=== PATIENT | female | born 2000 | race Caucasian/White ===

== ENCOUNTER → 2018-12-14 | Outpatient (CLI) | payer BC ==
--- NOTE | 2018-12-14 09:19 | KCIC ---
Indication:Low pelvic pain. IUD for one year. History of dermoid cyst removed from the left ovary 4 years ago. TECHNIQUE: Grayscale, color Doppler and spectral waveform images of the pelvis obtained. COMPARISON: None FINDINGS: The uterus is anteverted and measures 9.0 x 3.8 x 5.0 cm. Endometrial stripe measures 7 mm in thickness and is within normal limits. IUD noted. Right ovary measures 2.8 x 1.5 x 2.8 cm and shows blood flow. Small amount of free pelvic fluid noted likely physiologic. Left ovary measures 4.1 x 3.0 x 3.3 cm with blood flow. Hyperechoic lesion within the left ovary is seen measuring 2.6 x 2.2 x 2.1 cm without internal vascularity. IMPRESSION: 1. Both ovaries show evidence of blood flow. 2. Complex left ovarian lesion likely hemorrhagic cyst. Follow-up ultrasound in 8-10 weeks recommended. Electronically signed by: Arturo Hanna DO (12/14/2018 9:16 AM) [facility]
== END | disposition home or self-care (01) ==
LOC: KCIC US 07:46
PROVIDERS: ATTEND Nurse Practitioner Women's Health
DX: N83.9 Noninflammatory disorder of ovary, fallopian tube and broad ligament, unspecified (principal); Z97.5 Presence of (intrauterine) contraceptive device; Z86.018 Personal history of other benign neoplasm
CPT/HCPCS: 76830; 76856